=== PATIENT | female | born 1975 | race African-American/Black ===

== ENCOUNTER 2020-03-17 17:12 | Emergency (ER) | payer MEDICAID ==
[~2020-03-17] VITALS: Ht 157.5 cm; Wt 84.0 kg
[2020-03-17 18:40] LABS: BASOPHILS % 0.7 % (0.0-2.0); EOSINOPHILS % 2.5 % (0.0-5.0); HEMATOCRIT. 40.5 % (36.0-48.0); HEMOGLOBIN. 13.4 g/dL (12.0-16.0); LYMPHOCYTES % 28.8 % (20.0-50.0); MEAN CORPUSCULAR VOLUME 87.5 fL (81.0-99.0); MEAN PLATELET VOLUME 8.1 fl (7.4-10.4); MONOCYTES % 6.4 % (2.0-8.0); NEUTROPHILS % 61.6 % (40.0-76.0); PLATELET 282 x1000/uL (130-400); RED BLOOD CELL COUNT 4.63 mill/uL (4.2-5.4); RED CELL DISTRIBUTION WIDTH 13.8 % (11.6-14.6)
[2020-03-17 18:45] LABS: CHLORIDE 108 mEq/L (98-107)
[2020-03-17 19:47] VITALS: BP 135/85
== END 2020-03-17 19:50 | disposition home or self-care (01) ==
LOC: ER 17:12
DX: I16.1 Hypertensive emergency (principal); Z87.19 Personal history of other diseases of the digestive system
CPT/HCPCS: 36415; 80053; 85025; 93005; 99284

== ENCOUNTER 2020-06-06 14:14 | Emergency (ER) | payer MEDICAID ==
[~2020-06-06] VITALS: Ht 157.5 cm; Wt 86.3 kg
[2020-06-06 14:22] VITALS: BP 129/76
== END 2020-06-06 15:00 | disposition home or self-care (01) ==
LOC: ER 14:14
DX: R51.9 Headache, unspecified (principal); I10 Essential (primary) hypertension; Z20.828 Contact with and (suspected) exposure to other viral communicable diseases
CPT/HCPCS: 87635; 99283; C9803; 99281

== ENCOUNTER 2021-02-28 20:26 | Emergency (ER) | payer MEDICAID ==
[~2021-02-28] VITALS: Ht 157.5 cm; Wt 87.0 kg
[2021-02-28 20:38] VITALS: BP 132/67
[2021-02-28] MEDS ORDERED: PREDNISONE 20MG TABLET PO ONE (23:00)
[2021-02-28] MEDS ORDERED: DIPHENHYDRAMINE 25MG CAPSULE PO ONE (23:00)
[2021-02-28] MEDS ORDERED: FAMOTIDINE 20MG TABLET PO ONE (23:00)
[2021-02-28] MEDS ORDERED: P20 MT (23:14)
[2021-02-28] MEDS ORDERED: FAMO-135 MT (23:14)
== END 2021-02-28 23:42 | disposition home or self-care (01) ==
LOC: ER 20:26
DX: R21 Rash and other nonspecific skin eruption (principal)
CPT/HCPCS: 99284; J7512; Q0163

== ENCOUNTER 2022-09-10 18:43 | Emergency (ER) | payer MEDICAID, OTHER ==
[~2022-09-10] VITALS: Ht 157.5 cm; Wt 87.0 kg
[~2022-09-10 18:43] MED LIST: FAMO-135 MT; P20 MT
[2022-09-10 19:32] VITALS: BP 128/73
[2022-09-10] MEDS ORDERED: CEPHALEXIN 250MG CAPSULE PO ONE (19:45)
[2022-09-10] MEDS ORDERED: ACETAMINOPHEN 325MG TABLET PO ONE (19:45)
[2022-09-10] MEDS ORDERED: ACET-2708 MT ×2 (20:20→20:21)
[2022-09-10] MEDS ORDERED: CEPH500C2 MT ×2 (20:20→20:21)
== END 2022-09-10 21:23 | disposition home or self-care (01) ==
LOC: ER 18:43
DX: L03.116 Cellulitis of left lower limb (principal); I10 Essential (primary) hypertension; Z87.19 Personal history of other diseases of the digestive system; Z79.899 Other long term (current) drug therapy
CPT/HCPCS: 73610; 99283

== ENCOUNTER 2023-11-22 13:27 | Emergency (ER) | payer MEDICAID ==
[~2023-11-22] VITALS: Ht 157.5 cm; Wt 86.4 kg
[~2023-11-22 13:27] MED LIST changes: +ACET-2708 MT; +CEPH500C2 MT
[2023-11-22 14:02] VITALS: O2SAT 97
[2023-11-22] MEDS: ACETAMINOPHEN 325MG TABLET PO ONE (15:27)
[2023-11-22] MEDS ORDERED: AMOX-494 MT (16:35)
[2023-11-22] MEDS ORDERED: ACET-2708 MT (16:35)
[2023-11-22 16:48] VITALS: BP 125/66; PULSE 88; RESP 18; TEMP 98.9
== END 2023-11-22 16:49 | disposition home or self-care (01) ==
LOC: ER 13:27
DX: J02.0 Streptococcal pharyngitis (principal); I10 Essential (primary) hypertension; Z98.890 Other specified postprocedural states; Z79.899 Other long term (current) drug therapy
CPT/HCPCS: 87430; 99283